=== PATIENT | male | born 1980 ===

== ENCOUNTER 2018-03-07 19:48 | Emergency (ER) | payer SELFPAY ==
[2018-03-07 20:35] VITALS: BP 115/79; PULSE 74; RESP 18; TEMP 98; O2SAT 100
--- NOTE | 2018-03-07 21:40 | ED PDOC ---
HPI: Chest Pain Time Seen by Provider: 03/07/18 21:09 Chief Complaint (Nursing): Rib Injury Chief Complaint (Provider): Rib Injury History Per: Patient History/Exam Limitations: no limitations Onset/Duration Of Symptoms: Days (x14) Current Symptoms Are (Timing): Still Present Additional Complaint(s): Pt. states 2 weeks ago while at work he was standing on the flatbed portion of a truck when he fell down striking the R side of his chest onto the wall of the trunk. Has had pain at the site of impact since. Denies hemoptysis, SOB, numbness, tingling, other injury, abdominal pain. Past Medical History Reviewed: Historical Data, Nursing Documentation, Vital Signs Vital Signs: Last Vital Signs Temp 98 F 03/07/18 20:32 Pulse 74 03/07/18 20:32 Resp 18 03/07/18 20:32 BP 115/79 03/07/18 20:32 Pulse Ox 100 03/07/18 21:44 - Medical History PMH: No Chronic Diseases - Surgical History Surgical History: No Surg Hx - Family History Family History: States: Unknown Family Hx - Home Medications Home Medications: Ambulatory Orders Medication Instructions Recorded Ibuprofen [Motrin Tab] 600 mg PO Q6 PRN #20 tab 03/07/18 - Allergies Allergies/Adverse Reactions: Allergies Allergy/AdvReac Type Severity Reaction Status Date / Time No Known Allergies Allergy Verified 03/07/18 20:32 Review of Systems ROS Statement: Except As Marked, All Systems Reviewed And Found Negative Cardiovascular: Positive for: Chest Pain Respiratory: Positive for: Pleuritic Pain Physical Exam - Reviewed Nursing Documentation Reviewed: Yes Vital Signs Reviewed: Yes - Physical Exam Appears: Positive for: Well, Non-toxic, No Acute Distress Head Exam: Positive for: ATRAUMATIC, NORMAL INSPECTION, NORMOCEPHALIC Skin: Positive for: Normal Color, Warm. Negative for: Rash Eye Exam: Positive for: Normal appearance Cardiovascular/Chest: Positive for: Regular Rate, Rhythm. Negative for: Chest Non Tender (Moderate R sided anterior chest wall tenderness without flail chest) Respiratory: Positive for: Normal Breath Sounds. Negative for: Respiratory Distress Gastrointestinal/Abdominal: Positive for: Normal Exam, Bowel Sounds, Soft, Other (no ecchymosis to abdomen). Negative for: Tenderness Back: Positive for: Normal Inspection. Negative for: L CVA Tenderness, R CVA Tenderness, Vertebral Tenderness Extremity: Positive for: Normal ROM Neurologic/Psych: Positive for: Alert, Oriented. Negative for: Aphasia, Facial Droop - ECG O2 Sat by Pulse Oximetry: 100 (RA) Pulse Ox Interpretation: Normal - Progress ED Course And Treament: Chest CT w/o contrast: Healing fractures right sixth, seventh ribs Pt. informed of results. Incentive spirometer given along with instructions on use. Advised to f/u with [facility] for further evaluation. Medical Decision Making Medical Decision Making: Time: 2127 Plan: -- CT Chest w/o Contrast Scribe Attestation: Documented by Chantal Sawyer, acting as a scribe for Theodore Kendrick PA-C. Provider Scribe Attestation: All medical record entries made by the Scribe were at my direction and personally dictated by me. I have reviewed the chart and agree that the record accurately reflects my personal performance of the history, physical exam, medical decision making, and the department course for this patient. I have also personally directed, reviewed, and agree with the discharge instructions and disposition. Disposition - Clinical Impression Clinical Impression: Ribs, multiple fractures - Patient ED Disposition Is Patient to be Admitted: No - Disposition Referrals: [facility] [Outside] Disposition: Routine/Home Disposition Time: 21:00 Condition: STABLE Additional Instructions: JARRED TIPTON, thank you for letting us take care of you today. Your provider was Rian Liao III, DO and you were treated for FLANK PAIN. The emergency medical care you received today was directed at your acute symptoms. If you were prescribed any medication, please fill it and take as directed. It may take several days for your symptoms to resolve. Return to the Emergency Department if your symptoms worsen, do not improve, or if you have any other problems. Please contact your doctor or call one of the physicians/clinics you have been referred to that are listed on the Patient Visit Information form that is included in your discharge packet. Bring any paperwork you were given at discharge with you along with any medications you are taking to your follow up visit. Our treatment cannot replace ongoing medical care by a primary care provider outside of the emergency department. Thank you for allowing the [facility] team to be part of your care today. If you had an X-Ray or CT scan: A Radiologist will review the ED reading if any change in treatment is needed we will contact you. If you had a blood, urine, or wound culture: It will take several days for the results, if any change in treatment is needed we will contact you. If you had an STI test: It will take 48 hours for the results. Please call after 1 week if you have not heard back. Prescriptions: Ibuprofen [Motrin Tab] 600 mg PO Q6 PRN #20 tab PRN Reason: Pain Instructions: Rib Fracture (DC), How to Use an Incentive Spirometer Forms: [employer] (Turkmen), [facility] ED School/Work Excuse Print Language: SINHALA
--- NOTE | 2018-03-08 11:10 | CT ---
Date of service: 03/07/2018 PROCEDURE: CT Chest without contrast HISTORY: Right-sided chest trauma COMPARISON: None. TECHNIQUE: Contiguous axial images were obtained through the chest without intravenous contrast enhancement. Sagittal and coronal reconstructions were performed. Radiation dose (DLP): 466.77 mGy-cm. This CT exam was performed using one or more of the following dose reduction techniques: Automated exposure control, adjustment of the mA and/or kV according to patient size, and/or use of iterative reconstruction technique. FINDINGS: LUNGS: No evidence of acute consolidation or contusion. No parenchymal masses or nodules seen. MEDIASTINUM: Unremarkable thoracic aorta. No aneurysm. Normal sized heart. Main pulmonary artery unremarkable. No vascular congestion. No lymphadenopathy. There is a small hiatal hernia. PLEURA: No pleural fluid. No pneumothorax. BONES: There are right anterior 6th and 7th rib fractures. . Small amount of gas seen within the right glenohumeral joint UPPER ABDOMEN: Grossly unremarkable. OTHER FINDINGS: None. IMPRESSION: There are right anterior 6th and 7th rib fractures. No evidence of pneumothorax or effusion. No evidence of infiltrate or lung contusion seen.
== END 2018-03-07 23:59 | disposition home or self-care (01) ==
LOC: H.ER 19:48
DX: S22.41XA Multiple fractures of ribs, right side, initial encounter for closed fracture (principal); W18.30XA Fall on same level, unspecified, initial encounter